=== PATIENT | male | born 1990 | race Caucasian/White ===

== ENCOUNTER 2016-11-17 21:19 | Emergency (ER) | payer SELFPAY | END 2016-11-18 01:53 | disposition home or self-care (01) | LOC: ER1 21:19 | DX: R51 Headache (principal); F17.210 Nicotine dependence, cigarettes, uncomplicated; J45.909 Unspecified asthma, uncomplicated; Z88.6 Allergy status to analgesic agent | CPT/HCPCS: 70450; 99284 ==

== ENCOUNTER 2016-11-19 20:02 | Emergency (ER) | payer SELFPAY ==
[2016-11-19 23:14] LABS: HEMOGLOBIN 14.4 gm/dl (14.0-17.5); RED BLOOD COUNT 5.01 M/UL (4.20-5.50)
[2016-11-19 23:28] LABS: BUN/CREATININE RATIO 17 (0-10)
== END 2016-11-20 01:03 | disposition home or self-care (01) ==
LOC: ER1 20:02
PROVIDERS: Student in an Organized Health Care Education/Training Program
DX: R51 Headache (principal); F17.210 Nicotine dependence, cigarettes, uncomplicated; Z88.6 Allergy status to analgesic agent
CPT/HCPCS: 36415; 70450; 70487; 80053; 82550; 83874; 85025; 96374; 96375; 99284; J1200; J2765; J7030; J7050; Q9962

== ENCOUNTER 2016-12-16 04:02 | Emergency (ER) | payer SELFPAY | END 2016-12-16 06:18 | disposition home or self-care (01) | LOC: ER1 04:02 | DX: Z04.1 Encounter for examination and observation following transport accident (principal); J45.909 Unspecified asthma, uncomplicated; F17.210 Nicotine dependence, cigarettes, uncomplicated; Z88.8 Allergy status to other drugs, medicaments and biological substances | CPT/HCPCS: 71010; 73564; 90471; 90714; 96372; 99284; J1885 ==